=== PATIENT | female | born 1995 ===

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

== ENCOUNTER 2017-01-28 12:41 | Emergency (ER) | payer OTHER ==
[2017-01-28 12:42] VITALS: BMI 23.0
--- NOTE | 2017-01-28 13:48 | ED PDOC ---
HPI: General Adult Time Seen by Provider: 01/28/17 13:08 Chief Complaint (Nursing): Abdominal Pain History Per: Patient Additional Complaint(s): Pt. states for the past 1-2 weeks she's had pelvic pain associated with nausea some non-bloody vomiting. Pt. states she is currently "3 weeks ." LMP 11/05/2016. Pt. has not had any care yet. Denies hematuria, vaginal bleeding, dysuria, fever, diarrhea, hx of ectopic . Past Medical History Reviewed: Historical Data, Nursing Documentation, Vital Signs Vital Signs: Last Vital Signs Temp 98.2 F 01/28/17 12:57 Pulse 67 01/28/17 12:57 Resp 19 01/28/17 12:57 BP 114/72 01/28/17 12:57 Pulse Ox 97 01/28/17 13:48 - Medical History PMH: Bipolar Disorder, Depression Denies: Diabetes, Hepatitis, HIV, HTN, Chronic Kidney Disease, Seizures, Sexually Transmitted Disease - Family History Family History: States: No Known Family Hx - Home Medications Home Medications: Ambulatory Orders Medication Instructions Recorded Doxylamine/Pyridoxine HCl (B6) 1 - 2 tab PO DAILY PRN #30 01/28/17 [Lila Sung 10-10 mg Tablet] tablet. Nitrofurantoin Macrocrystals 100 mg PO BID #14 cap 01/28/17 [Macrobid] Multivit/Folic Acid/I 1 tab PO DAILY #30 tab 01/28/17 [ Plus] - Allergies Allergies/Adverse Reactions: Allergies Allergy/AdvReac Type Severity Reaction Status Date / Time No Known Allergies Allergy Verified 09/20/16 09:08 Review of Systems ROS Statement: Except As Marked, All Systems Reviewed And Found Negative Genitourinary Female: Positive for: Pelvic Pain Physical Exam - Physical Exam Appears: Positive for: Well, Non-toxic, No Acute Distress Skin: Positive for: Normal Color, Warm. Negative for: Rash Eye Exam: Positive for: EOMI, Normal appearance, PERRL Cardiovascular/Chest: Positive for: Regular Rate, Rhythm Respiratory: Positive for: CNT, Normal Breath Sounds Gastrointestinal/Abdominal: Positive for: Normal Exam, Bowel Sounds, Soft. Negative for: Tenderness Back: Positive for: Normal Inspection. Negative for: L CVA Tenderness, R CVA Tenderness Extremity: Positive for: Normal ROM Neurologic/Psych: Positive for: Alert, Oriented - Laboratory Results Result Diagrams: 01/28/17 14:10 01/28/17 14:10 Urine POC: Positive Urine dip results: Positive for: Leukocyte Esterase (trace). Negative for: Blood, Nitrate, Ketones, Glucose, Bilirubin, Protein - ECG O2 Sat by Pulse Oximetry: 97 - Progress ED Course And Treament: Labs ordered. OB TVUS ordered. OB TVUS: Single live intrauterine with a crown-rump length of 9 millimeters corresponding to 7 weeks gestational age. 2.1 centimeter right corpus luteum cyst. Left ovary not identified. heart motion is identified. There is a yolk sac. Disposition - Clinical Impression Clinical Impression: UTI (urinary tract infection) during - Patient ED Disposition Is Patient to be Admitted: No - Disposition Referrals: [facility] [Outside] Disposition: Routine/Home Disposition Time: 16:38 Condition: STABLE Additional Instructions: FOLLOW UP WITH YOUR OBGYN ON MONDAY FOR FURTHER EVALUATION Prescriptions: Doxylamine/Pyridoxine HCl (B6) [Lila Sung 10-10 mg Tablet] 1 - 2 tab PO DAILY PRN #30 tablet. PRN Reason: Nausea/Vomiting Nitrofurantoin Macrocrystals [Macrobid] 100 mg PO BID #14 cap Multivit/Folic Acid/I [ Plus] 1 tab PO DAILY #30 tab Instructions: Urinary Tract Infection in (ED) Forms: [employer] (Russian)
[2017-01-28 14:35] LABS: BASO % 0.3 % (0.0-2.0); EOS # 0.1 K/uL (0.0-0.7); EOS % 1.6 % (0.0-4.0); HEMATOCRIT 40.8 % (34.0-47.0); LYMPH # 1.7 K/uL (1.0-4.3); LYMPH % 17.8 % (20.0-40.0); MEAN CELL VOLUME 92.4 fl (81.0-99.0); MEAN CORPUSCULAR HEMOGLOBIN 31.3 pg (27.0-31.0); MEAN CORPUSCULAR HGB CONC 33.9 g/dL (33.0-37.0); MONO # 0.8 K/uL (0.0-0.8); MONO % 8.5 % (0.0-10.0); NEUT # 6.7 K/uL (1.8-7.0); NEUT % 71.8 % (50.0-75.0); NRBC % 0.1 % (0.0-0.0); RED CELL DISTRIBUTION WIDTH 12.9 % (11.5-14.5); WHITE BLOOD COUNT 9.3 K/uL (4.8-10.8)
[2017-01-28 14:42] LABS: ALB/GLOB RATIO 1.4 (1.0-2.1); ALKALINE PHOSPHATASE 45 U/L (38-126); ALT/SGPT 32 U/L (9-52); AST/SGOT 20 U/L (14-36); BILIRUBIN,TOTAL 0.2 mg/dl (0.2-1.3); BLOOD UREA NITROGEN 8 mg/dl (7-17); CALCIUM 9.1 mg/dL (8.4-10.2); CARBON DIOXIDE 25 mmol/L (22-30); CHLORIDE 105 mmol/L (98-107); GFR AFRICAN-AMERICAN > 60; GLUCOSE,RANDOM 87 mg/dL (65-105); POTASSIUM 3.9 MMOL/L (3.6-5.0); SODIUM 139 mmol/l (132-148); TOTAL PROTEIN 7.4 G/DL (6.3-8.2)
--- NOTE | 2017-01-28 16:40 | US ---
PROCEDURE: HISTORY: pelvic pain COMPARISON: TECHNIQUE: FINDINGS: Single live intrauterine with a crown-rump length of 9 millimeters corresponding to 7 weeks gestational age. 2.1 centimeter right corpus luteum cyst. Left ovary not identified. heart motion is identified. There is a yolk sac. IMPRESSION: As above.
[2017-01-28 16:57] LABS: RBC URINE 2 /hpf (0-3); URINE BACTERIA MOD (<OCC); URINE BILIRUBIN NEGATIVE (NEGATIVE); URINE BLOOD NEGATIVE (NEGATIVE); URINE COLOR YELLOW (YELLOW); URINE GLUCOSE (UA) NEG (Normal); URINE KETONE NEGATIVE (NEGATIVE); URINE LEUKOCYTE ESTERASE SMALL Leu/uL (Negative); URINE PROTEIN 30 mg/dL (NEGATIVE); URINE UROBILINOGEN 0.2-1.0 mg/dL (0.2-1.0); WBC URINE 12 /hpf (0-5)
[2017-01-28 17:12] VITALS: BP 120/76; PULSE 78; RESP 17; TEMP 97.6; O2SAT 98
== END 2017-01-28 17:12 | disposition home or self-care (01) ==
LOC: H.ER 12:41 → SUPCPDRO 12:41 → H.ER 17:12
DX: O23.41 Unspecified infection of urinary tract in pregnancy, first trimester (principal); Z86.59 Personal history of other mental and behavioral disorders; Z3A.01 Less than 8 weeks gestation of pregnancy

== ENCOUNTER 2017-03-26 18:53 | Emergency (ER) | payer MEDICAID, OTHER ==
[2017-03-26 18:54] VITALS: BMI 23.0
[2017-03-26 19:11] VITALS: BP 140/65; PULSE 83; RESP 16; TEMP 98.2; O2SAT 100
[2017-03-26] MEDS ORDERED: Lactated Ringer's 1,000 ML IV STA (19:47)
--- NOTE | 2017-03-26 19:55 | ED PDOC ---
HPI: Abdomen Chief Complaint (Provider): abdominal pain History Per: Patient History/Exam Limitations: no limitations Onset/Duration Of Symptoms: Other (2 weeks) Current Symptoms Are (Timing): Still Present Severity: Moderate Pain Scale Rating Of: 5 Location Of Pain/Discomfort: RLQ, LLQ, Periumbilical Quality Of Discomfort: Sharp Abnormal Vaginal Bleeding: No Last Menstral Period: pt unsure; currently : 3 Para: 1 <Tami De Jesus - Last Filed: 03/26/17 21:33> <Aggie Gomez - Last Filed: 03/26/17 22:55> Time Seen by Provider: 03/26/17 19:14 Chief Complaint (Nursing): Abdominal Pain Additional Complaint(s): Zamzam Lim is a 21 yo F, with no known medical hx who presented to ED today 03/26/17 with complaints of 2 weeks abdominal pain. She does not know her LMP; gets pre- care at [facility]. States she has appt tomorrow. As per pt, she is "18-19 weeks ," but she gives WANDA of 09/06/17 , which dates her at 16w5d today. She describes the pain as sharp, 5/10, and migratory between her umbilical area, RLQ and LLQ. Denies vaginal bleeding, contractions, loss of fluid. PMH: none Past OBGYN Hx: elective termination at 16 w x1. NVD in September 2016 at [facility] ( at [id number] as per pt; but pt has records of being seen in [facility] at [place] in September 2016 when she was 37+ weeks) Allergies: none Medications: vitamins Social hx: everyday smoker 5 cig/day. Prior to , smoked 1 ppd for 4-5 yrs. Denies alcohol or illicit drug use. (Tami De Jesus) Supervising Attending Note <Tami De Jesus - Last Filed: 03/26/17 21:33> - Supervising Attending Note The Documented history was done by the: Physician Guideman, Attending Physician The documented physical exam was done by the: Physician Guideman, Attending Physician - Attestation: I have personally seen and examined this patient.: Yes I have fully participated in the care of the patient.: Yes I have reviewed all pertinent clinical information: Yes <Aggie Gomez - Last Filed: 03/26/17 22:55> - Notes: Notes:: Healthy 21yo in 2nd trimester with mild abdominal pain, no apparent distress and benign abdomen. + heart No UTI. Stable for dc. (Aggie Gomez) Past Medical History - Medical History PMH: Bipolar Disorder, Depression Denies: Diabetes, Hepatitis, HIV, HTN, Chronic Kidney Disease, Seizures, Sexually Transmitted Disease - Family History Family History: States: Unknown Family Hx - Social History Alcohol: None Drugs: Denies <Tami De Jesus - Last Filed: 03/26/17 21:33> <Aggie Gomez - Last Filed: 03/26/17 22:55> Vital Signs: Last Vital Signs Temp 98.2 F 03/26/17 19:09 Pulse 83 03/26/17 19:09 Resp 16 03/26/17 19:09 BP 140/65 03/26/17 19:09 Pulse Ox 100 03/26/17 21:33 - Home Medications Home Medications: Ambulatory Orders Medication Instructions Recorded Doxylamine/Pyridoxine HCl (B6) 1 - 2 tab PO DAILY PRN #30 01/28/17 [Lila Sung 10-10 mg Tablet] tablet. Nitrofurantoin Macrocrystals 100 mg PO BID #14 cap 01/28/17 [Macrobid] Multivit/Folic Acid/I 1 tab PO DAILY #30 tab 01/28/17 [ Plus] - Allergies Allergies/Adverse Reactions: Allergies Allergy/AdvReac Type Severity Reaction Status Date / Time No Known Allergies Allergy Verified 09/20/16 09:08 Review of Systems Constitutional: Negative for: Fever, Chills ENT: Negative for: Nose Discharge, Throat Pain Cardiovascular: Negative for: Palpitations, Edema Respiratory: Negative for: Cough Gastrointestinal: Positive for: Nausea, Abdominal Pain. Negative for: Vomiting , Diarrhea, Constipation Genitourinary Female: Negative for: Dysuria, Frequency Neurological: Negative for: Weakness, Numbness <Tami De Jesus - Last Filed: 03/26/17 21:33> Physical Exam - Physical Exam Appears: Positive for: No Acute Distress Head Exam: Positive for: ATRAUMATIC, NORMAL INSPECTION Skin: Positive for: Normal Color, Warm, Dry Eye Exam: Positive for: Normal appearance. Negative for: Conjunctival injection Neck: Positive for: Painless ROM Cardiovascular/Chest: Positive for: Regular Rate, Rhythm, Chest Non Tender. Negative for: Edema, Murmur Respiratory: Positive for: Normal Breath Sounds, Rales. Negative for: Accessory Muscle Use, Wheezing, Respiratory Distress Gastrointestinal/Abdominal: Positive for: Normal Exam, Bowel Sounds, Soft, Tenderness (very mild periumbilical tenderness) Extremity: Positive for: Normal ROM. Negative for: Calf Tenderness, Deformity Neurologic/Psych: Positive for: Alert, Oriented <Tami De Jesus - Last Filed: 03/26/17 21:33> - Laboratory Results Result Diagrams: 03/26/17 20:15 03/26/17 20:15 - ECG O2 Sat by Pulse Oximetry: 100 <Tami De Jesus - Last Filed: 03/26/17 21:33> - Laboratory Results Result Diagrams: 03/26/17 20:15 03/26/17 20:15 <Aggie Gomez - Last Filed: 03/26/17 22:55> Medical Decision Making <Tami De Jesus - Last Filed: 03/26/17 21:33> <Aggie Gomez - Last Filed: 03/26/17 22:55> Medical Decision Makin:34 Bedside sono done with Dr. Gomez - fetus visualized, movements observed , cardiac activity noted. Urine dipstick: neg for nitrate, negative for leukocyte esterase Urine preg: positive 1L LR @ 1,000 ml/hr Urine tox pending CBC w/diff pending CMP pending 21:26 CBC and CMP wnl utox negative Pt to be d/c home with follow up at [facility]. Pt seen and discussed with Dr. Gomez. (Tami De Jesus) Disposition - Patient ED Disposition Is Patient to be Admitted: No Counseled Patient/Family Regarding: Smoking Cessation - Disposition Disposition Time: 21:27 <Tami De Jesus - Last Filed: 03/26/17 21:33> - Disposition Disposition: Routine/Home <Aggie Gomez - Last Filed: 03/26/17 22:55> - Clinical Impression Clinical Impression: Abdominal pain during - Disposition Referrals: [facility] [Outside] - 03/27/17 Condition: GOOD Additional Instructions: DRINK PLENTY OF HYDRATING FLUIDS AND REST FOLLOW UP SCHEDULED TOMORROW WITH MARIN GARCIA CONTINUE VITAMINS DAILY QUIT SMOKING Instructions: How to Stop Smoking (ED), Abdominal Pain in (ED), at 15 to 18 Weeks (ED) Forms: [employer] (Khmer)
[2017-03-26 20:24] LABS: BASO % 0.3 % (0.0-2.0); EOS # 0.1 K/uL (0.0-0.7); EOS % 1.4 % (0.0-4.0); LYMPH # 1.5 K/uL (1.0-4.3); LYMPH % 18.4 % (20.0-40.0); MEAN CELL VOLUME 91.4 fl (81.0-99.0); MEAN CORPUSCULAR HEMOGLOBIN 30.8 pg (27.0-31.0); MEAN CORPUSCULAR HGB CONC 33.8 g/dL (33.0-37.0); MEAN PLATELET VOLUME 9.5 fl (7.2-11.7); MONO # 0.7 K/uL (0.0-0.8); MONO % 8.7 % (0.0-10.0); NEUT # 5.9 K/uL (1.8-7.0); NEUT % 71.2 % (50.0-75.0); RBC 3.91 Mil/uL (3.80-5.20); RED CELL DISTRIBUTION WIDTH 13.3 % (11.5-14.5); WHITE BLOOD COUNT 8.4 K/uL (4.8-10.8)
[2017-03-26 20:32] LABS: ALB/GLOB RATIO 1.2 (1.0-2.1); ALBUMIN 3.7 g/dL (3.5-5.0); ALT/SGPT 27 U/L (9-52); AST/SGOT 16 U/L (14-36); BLOOD UREA NITROGEN 12 mg/dl (7-17); CALCIUM 9.1 mg/dL (8.4-10.2); GFR AFRICAN-AMERICAN > 60; GFR NON-AFRICAN AMERICAN > 60
[2017-03-26 20:35] LABS: BARBITURATES, UR NEGATIVE (NEGATIVE); BENZODIAZEPINES, UR NEGATIVE (NEGATIVE); OPIATES, UR NEGATIVE (NEGATIVE); PHENCYCLIDINE, UR NEGATIVE (NEGATIVE)
== END 2017-03-26 22:02 | disposition home or self-care (01) ==
LOC: H.ER 18:53
DX: O26.899 Other specified pregnancy related conditions, unspecified trimester (principal); F17.210 Nicotine dependence, cigarettes, uncomplicated; F31.9 Bipolar disorder, unspecified
CPT/HCPCS: 80053; 80324; 80345; 80346; 80349; 80353; 80358; 80361; 83992; 85025; 99282; J7120

== ENCOUNTER 2017-09-16 03:07 | Inpatient (IN) | payer OTHER ==
[2017-09-16 04:13] VITALS: BMI 22.3
[2017-09-16] MEDS ORDERED: Penicillin G Potassium 5 MU in Sodium Chloride 0.9% 50 ML IVPB ONE (04:14)
[2017-09-16] MEDS ORDERED: Lactated Ringer's 1,000 ML IV SCH (04:15)
[2017-09-16] MEDS: Lactated Ringer's 1,000 ML IV ONE ×2 (04:30→04:45)
[2017-09-16] MEDS ORDERED: Penicillin G 5 Million Unit Vial IVPB ONE (04:36)
[2017-09-16 05:12] LABS: BASO % 0.4 % (0.0-2.0); EOS # 0.1 K/uL (0.0-0.7); EOS % 0.7 % (0.0-4.0); HEMOGLOBIN 12.3 g/dL (12.0-16.0); LYMPH # 1.8 K/uL (1.0-4.3); LYMPH % 18.5 % (20.0-40.0); MEAN CELL VOLUME 93.7 fl (81.0-99.0); MEAN CORPUSCULAR HEMOGLOBIN 30.2 pg (27.0-31.0); MEAN CORPUSCULAR HGB CONC 32.2 g/dL (33.0-37.0); MEAN PLATELET VOLUME 10.4 fl (7.2-11.7); MONO % 10.7 % (0.0-10.0); NEUT # 6.6 K/uL (1.8-7.0); NEUT % 69.7 % (50.0-75.0); NRBC % 0.1 % (0.0-0.0); RBC 4.06 Mil/uL (3.80-5.20); RED CELL DISTRIBUTION WIDTH 14.7 % (11.5-14.5); WHITE BLOOD COUNT 9.5 K/uL (4.8-10.8)
[2017-09-16] MEDS ORDERED: Fentanyl/Bupivacaine HCl 250 ML EPI ONE (05:12)
[2017-09-16] MEDS ORDERED: Lidocaine 1% Inj (20ml) ONE (05:23)
[2017-09-16] MEDS ORDERED: Oxytocin 30 units/LR 500ML 30 U/500 ML BAG IV ONE (05:25)
[2017-09-16] MEDS ORDERED: Oxycodone/Acetaminophen 5/325 mg Tab PO PRN (06:01)
[2017-09-16] MEDS ORDERED: Benzocaine/Menthol SPRAY TOP PRN (06:01)
--- NOTE | 2017-09-16 06:29 | OBADHP ---
Datetime: 09/16/2017 06:05 IP Chief Complaint: Uterine contractions EGA AdmitDate IP: 39.5 IP Admit Plan: Admit to unit; Initiate labor protocol Datetime: 09/16/2017 05:14 IP Adm Impression Other: GBS+ Admit Comment, IP Provider: Pt is a 22 y/o female with IUP 39.5 wks presents to [facility] with irreg ular ctx since 11am. Denies LOF, VB. +FM PNC: [place], GBS +, poorly complaint, no 3rd trimester labs, remainder of labs unremarkable OBHX: 1 prior (09/2016), full term, no complications, 1 SAB PMHX: Bipolar, Depression on records but denies Meds: PNV Allergies: NKDA Social: Former smoker, quit in 2nd trimester PE: Vitals: 115/73, 76 General: Pt appears moderately uncomfortable during contractions Cardio: RRR, no murmurs Pulm: CTABL Abdomen: Gravid, NT Ext: no edema Cervix- 4-5cm, low Limited Bedside U/S: Cephalic presentation FHR 130, reactive, no decels A: IUP 39.5 weeks in active labor, GBS+ P: Admit to L_D. Monitor for progression of labor. Heidy 5 x1, Pen 2.5 q4. LR bolus 1 liter. CBC, T ype and Screen, HIV, RPR, utox. Continuous monitoring. Discussed case with Dr. Rasheed Car, PGY2 OB Hospitalist on-call. With PGY2, I saw and examined this patient. Agree with note. MAHNDO Pain management, labor and delivery discussed. Extremities - PN: Normal Abdomen - PN: Normal Back - PN: Normal Lungs - PN: Normal Heart - PN: Normal Neurologic - PN: Normal HEENT - PN: Normal General - PN: Normal IP Hx Assessment: The History has been Reviewed and is Current Vital Signs Provider: Reviewed Dilatation, Provider: 4 Genitourinary Exam: Normal IP Adm Impression: Term, intrauterine ; Active labor; Intact Membranes
[2017-09-16 06:35] VITALS: RESP 20; O2SAT 100
--- NOTE | 2017-09-16 06:42 | OBDS ---
DELIVERY PERSONNEL Delivery Doctor: Raji Iqbal DO Hospital Attendant: Nini Bell RN, Taisha RN, Huber RN Resident: Dr. Damon MATERNAL INFORMATION Delivery Anesthesia: Local Medications in Delivery: Pitocin Estimated Blood Loss (ml): 200 Placenta Cultured: No Maternal Complications: Precipitous Labor (<3hrs) RN Comments: Vaginal Cyst removed by Dr. Iqbal specimen sent to lab Provider Comments: of live female over intact perineum. Nuchal cord was checked and none noted. The anterior shoulder delivered easily and the posterior s houlder followed. The remainder of the was easily delivered and oropharynx was bulb suctioned. The infant was noted to have spontaneous cry and spontaneous movement of all four extremities. The c ord was clamped x 2 and cut. Cord blood was obtained. The placenta delivered intact spontaneously and 30 units of Pitocin was placed in the IV bag to firm the uterus. Examination of the cervix and vagin al vault revealed a 1st degree perineal laceration which was repaired with 2-0 vicrylafter lidocaine injection. During repair, pt was found to have a vaginal cyst and the specimen was sent to pathology. The patient tolerated this procedure well. All sponge and needle counts were correct. Pediatrics was notified that Penicillin was administered at this time. Dr. Iqbal was present for entire procedure. EB L 200ml SNEHA CarY2 OB Hospitalist on-call. With PGY2, I attended with PGY2 Agree with note. ENRICOO LABOR SUMMARY EDC: 09/18/2017 00:00 No. Babies in Womb: 1 Attempted: No Labor Anesthesia: Local LABOR INFORMATION Reason for Induction: Not Applicable Onset of Labor: 09/15/2017 11:00 Complete Dilatation: 09/16/2017 05:15 Oxytocin: N/A Group B Beta Strep: Positive Antibiotics # of Doses: 1 Antibiotics Time of Last Dose: 0450 Steroids Given: None Reason Steroids Not Administered: Not Applicable MEMBRANES Membranes Rupture Method: Spontaneous Rupture of Membranes: 09/16/2017 05:14 Length of Rupture (hrs): 0.15 Amniotic Fluid Color: Clear Amniotic Fluid Amount: Moderate STAGES OF LABOR Stage 1 hrs: 18 Stage 1 min: 15 Stage 2 hrs: 0 Stage 2 min: 8 Stage 3 hrs: 0 Stage 3 min: 13 Total Time in Labor hrs: 18 Total Time in Labor min: 36 VAGINAL DELIVERY Episiotomy: None Laceration Extension: First Degree Laceration Type: Perineal Laceration Repair: Yes Initial Vag Sponge Count: 5 Final Vag Sponge Count: 5 Initial Vag Sharps Count: 2 Final Vag Sharps Count: 2 Sponge Count Correct: Yes Sharps Count Correct: Yes Count Comment: Laps 5 Sharps 2 Syringe 1 BABY A INFORMATION Delivery Date/Time: 09/16/2017 05:23 Method of Delivery: Vaginal Born in Route : No : N/A Forceps: N/A Vacuum Extraction: N/A Shoulder Dystocia : No SHOULDER DYSTOCIA BABY A Delivery Date/Time: 09/16/2017 05:23 PRESENTATION/POSITION BABY A Presentation: Cephalic Cephalic Presentation: Vertex Breech Presentation: N/A PLACENTA INFORMATION BABY A Placenta Delivery Time : 09/16/2017 05:36 Placenta Method of Delivery: Spontaneous Placenta Status: Delivered SCORES BABY A Heart Rate 1 min: >100 bpm Resp Effort 1 min: Good Cry Reflex Irritability 1 min: Cough or Sneeze or Pulls Away Muscle Tone 1 min: Active Motion Color 1 min: Body [place], Extremities Blue Resuscitation Effort 1 min: Tactile Stimulation SCORE 1 MIN: 9 Heart Rate 5 min: >100 bpm Resp Effort 5 min: Good Cry Reflex Irritability 5 min: Cough or Sneeze or Pulls Away Muscle Tone 5 min: Active Motion Color 5 min: Body [place], Extremities Blue Resuscitation Effort 5 min: N/A SCORE 5 MIN: 9 INFORMATION BABY A Gestational Age at Delivery: 39.5 Gestational Status: Term Outcome : Liveborn Infant Condition : Stable Infant Sex: Female IDENTIFICATION/MEDS BABY A ID Band Number: [id number] ID Band Location: Left Leg; Left Arm WEIGHT/LENGTH BABY A Infant Birthweight (gms): 3270 Weight (lb): 7 Infant Weight (oz): 3 CORD INFORMATION BABY A No. Cord Vessels: 3 Nuchal Cord : N/A Cord Blood Taken: Yes Infant Suction: Mouth; Nose ASSESSMENT BABY A Complications: None Physical Findings at Delivery: Within Normal Limits Respirations: Appears Normal [employer] [facility]/ALS Called : No Infant Care By: Lior MARADIAGA Transferred To: Remains with Mother
[2017-09-16 09:00] LABS: BARBITURATES, UR NEGATIVE (NEGATIVE); BENZODIAZEPINES, UR NEGATIVE (NEGATIVE); OPIATES, UR NEGATIVE (NEGATIVE); PHENCYCLIDINE, UR NEGATIVE (NEGATIVE)
[2017-09-16 09:17] LABS: ALBUMIN 2.9 g/dL (3.5-5.0); ALT/SGPT 21 U/L (9-52); AST/SGOT 24 U/L (14-36); BLOOD UREA NITROGEN 9 mg/dl (7-17); CALCIUM 8.1 mg/dL (8.4-10.2); GFR AFRICAN-AMERICAN > 60; GFR NON-AFRICAN AMERICAN > 60
[2017-09-17 12:50] LABS: HEMOGLOBIN 10.9 g/dL (12.0-16.0); MEAN CELL VOLUME 91.9 fl (81.0-99.0); MEAN CORPUSCULAR HEMOGLOBIN 30.7 pg (27.0-31.0); MEAN CORPUSCULAR HGB CONC 33.4 g/dL (33.0-37.0); RBC 3.56 Mil/uL (3.80-5.20); RED CELL DISTRIBUTION WIDTH 14.7 % (11.5-14.5); WHITE BLOOD COUNT 9.2 K/uL (4.8-10.8)
--- NOTE | 2017-09-17 14:35 | OBPPN ---
Datetime: 09/17/2017 08:36 PP Pain Prov: Within normal limits PP Nausea Prov: Denies PP Flatus Prov: Yes PP BM Prov: Yes PP Heart Prov: Normal PP Lungs Prov: Normal PP Abdomen/Uterus Prov: Normal PP Lochia Prov: Normal PP Extremities Prov: Normal PP C/S Incision Prov: Normal PP Progress Prov: Normal PP Impression Prov: Normal progression PP Plan Prov: Continue present management PP Progress Note Prov: PPD1 S: 22 yo , PPD 1 s/p NVD. Pt seen and examined at bedside, does not report any acute events overnight. Reports that she has some pain at site of laceration repair- is receiving benzocaine spra y and PO pain medication. She has been ambulating without difficulty or dizziness, has been toleratin g regular diet, and has been voiding without difficulty and passing gas. She is breast and bottle fee ding baby. Denies vaginal bleeding; lochia less than menses in volume. Denies fever/chills, chest husam n, dyspnea, GI upset, calf/leg pain. PE: Gen: awake, alert, NAD, sitting in bed and holding Resp: clear to auscultation bilaterally, normal effort CV: RRR ABD: soft, appropriate tenderness to palpation, nondistended, uterus firm at umbilicus, +BS EXT: no edema, negative Joe's sign, calves nontender Neuro/Psych: no grossly focal deficit, preserved affect and mood A: 22 yo s/p NVD, doing well on PPD 1. Continue pain control, reg diet, encourage ambulation and . [id number] Attending Note: Pt was seen and examined with the resident and I agree with the above. Datetime: 09/16/2017 13:36 Vital Signs Provider PP: Reviewed; Within Normal Limits
--- NOTE | 2017-09-18 08:13 | OBPPN ---
Datetime: 09/18/2017 07:13 PP Pain Prov: Within normal limits PP Nausea Prov: Denies PP Flatus Prov: Yes PP BM Prov: Yes PP Breasts Prov: Normal PP Heart Prov: Normal PP Lungs Prov: Normal PP Abdomen/Uterus Prov: Normal PP Lochia Prov: Normal PP CVA Tenderness Prov: Normal PP Extremities Prov: Normal PP C/S Incision Prov: Not Applicable PP Progress Prov: Normal PP Impression Prov: Normal progression PP Plan Prov: Continue present management; Discharge PP Progress Note Prov: S: 22 yo on 09/16/17 PPD 2. Seen and examined at bedside this am. Patient states mild pelvic cramping controlled with ibuprofen denies any significant overnight even ts. OOB/Ambulation well without dizziness. Breast and bottle feeding without difficulty. Tolerating P O diet well. Lochia is similar to menses . Voiding freely with no blood noted, +Bowel movement, passi ng gas per rectum. Denies fever/chills, diarrhea, nausea/vomiting, CP/SOB , Lightheadedness, calf husam n. O: BP:121/69, HR:67, RR20, T:98.9 CBC: 10.9/32.7 blood type: O+ Rubella: Immune TDAP:Ordered will be given this AM PHYSICAL EXAM: GEN: AAOx3, Resting comfortably in bed, NAD HEENT: NCAT, White sclera, pink conjunctiva, oral mucosa moist. LUNGS: CTA B/L, no wheezing, rhonchi, or rales, B/L chest rise CVS: RRR, S1, S2, No murmurs, rubs, gallops ABD: ND, +BS, firm fundus @ umbilical level. Soft, appropriate TTP EXT: No edema, negative Joe's sign, calves nontender NEURO/Psych: no gross focal deficit, preserved affect and mood. A/P 22yo PPD2 on 09/16/17 @ 5:23am. Pt afebrile, tolerating pain with medication, tolerati ng oral intake, adequate urine output. Encouraged and ambulation Continue vitamins 1 QD Ibuprofen 600 mg 1 tab q/ 6 hrs po if mild pain. Discussed post op contraception- Wants 10 yr IUD D/C today pending social work consult Sarah Morgan M.D. PGY-1 Reviewed and discussed with Attending OB Hospitalist Addendum: Pt seen and examined by me. Agree w/ above. PPD 2 s/p , doing well, breast and bottle feeding. Discharge home today. (ES) IP PP Procedures: None Vital Signs Provider PP: Reviewed; Within Normal Limits
--- NOTE | 2017-09-18 08:47 | OBDCSUM ---
Datetime: 09/18/2017 07:17 Discharged to, Provider: Home Follow up at, Provider: Dr. Coe Instr Activity: May be up to bathroom; May be up for meals; May Shower Disch Instr Diet: Regular Discharge Instructions, Provider: Routine instructions given Discharge Diagnosis, Provider: Term Delivered Discharge Time: 09/18/2017 10:00 Follow up in weeks, Provider: 4-6 weeks Disch Referrals: None Contraception discussed, Prov: Yes Disch Activity Restrictions: No exercising; No lifting; Minimize stair-climbing; Nothing in vagina - [place], tampons, douche Discharge Comment, Provider: Discharge Instructions: 1. Continue 2. vitamin 1 tab po daily 3. Ibuprofen 600mg 1 tab as needed for mild pain 4. ER precautions: If excessive bleeding or fever without relief from medication, go to ED 5. Avoid stairs, exercising, heavy lifting 6. Nothing in vagina for 4-6weeks 7. F/U at [facility] in 4-6 weeks for post- visit Contraception after Delivery: IUD
[2017-09-18] MEDS ORDERED: Tdap Vaccine 0.5 ml Vial (10-64 yrs) IM ONE (09:00)
[2017-09-18 18:57] VITALS: BP 110/60; PULSE 65; TEMP 98.7
== END 2017-09-18 14:22 | disposition home or self-care (01) | DRG 373 ==
LOC: H.EROB2 03:07 → H.L&D 04:14 → H.OB/GYN 10:15
PROVIDERS: ADMIT Obstetrics & Gynecology; ATTEND Obstetrics & Gynecology
PROC: 10E0XZZ Delivery of Products of Conception, External Approach (ICD-10-PCS; principal; 2017-09-16)
PROC: 0HQ9XZZ Repair Perineum Skin, External Approach (ICD-10-PCS; 2017-09-16)
PROC: 4A1HXCZ Monitoring of Products of Conception, Cardiac Rate, External Approach (ICD-10-PCS; 2017-09-16)
PROC: 3E0234Z Introduction of Serum, Toxoid and Vaccine into Muscle, Percutaneous Approach (ICD-10-PCS; 2017-09-18)
DX: O34.83 Maternal care for other abnormalities of pelvic organs, third trimester (principal); N89.8 Other specified noninflammatory disorders of vagina; O62.3 Precipitate labor; O70.0 First degree perineal laceration during delivery; O99.824 Streptococcus B carrier state complicating childbirth; Z37.0 Single live birth; Z3A.39 39 weeks gestation of pregnancy; Z23 Encounter for immunization; Z87.891 Personal history of nicotine dependence

== ENCOUNTER 2017-10-19 23:29 | Emergency (ER) | payer OTHER ==
[2017-10-19 23:30] VITALS: BMI 22.3
[2017-10-19 23:41] VITALS: RESP 16; O2SAT 99
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
[2017-10-20 03:12] VITALS: BP 112/72; PULSE 84; TEMP 98.4
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
== END 2017-10-20 02:53 | disposition home or self-care (01) ==
LOC: H.ER 23:29
DX: S20.219A Contusion of unspecified front wall of thorax, initial encounter (principal); Y04.0XXA Assault by unarmed brawl or fight, initial encounter; Y92.89 Other specified places as the place of occurrence of the external cause; F41.9 Anxiety disorder, unspecified

== ENCOUNTER 2018-03-18 16:14 | Emergency (ER) | payer SELFPAY ==
[2018-03-18 16:14] VITALS: BMI 22.3
[2018-03-18 16:19] VITALS: BP 125/68; PULSE 78; RESP 18; TEMP 97.9; O2SAT 99
--- NOTE | 2018-03-18 18:57 | ED PDOC ---
Lower Extremity Pain/Injury Time Seen by Provider: 03/18/18 16:40 Chief Complaint (Nursing): Lower Extremity Problem/Injury Chief Complaint (Provider): Lower Extremity Problem/Injury History Per: Patient History/Exam Limitations: no limitations Onset/Duration Of Symptoms: Days Current Symptoms Are (Timing): Still Present Additional Complaint(s): 22 y/o female with a PMHx of asthma presents to the ED for evaluation of a right ankle injury. Patient states she jumped down two steps when her knees buckled causing her to fall onto her right ankle. Patient reports of feeling immediate pain and swelling. Patient additionally reports of difficulty bearing weight. Patient states pain is associated with intermittent tingling of her right foot. Otherwise, patient denies taking any pain medications prior to arrival, head trauma, loss of consciousness and pain in the knees or toes. PMD: no provider Past Medical History Reviewed: Historical Data, Nursing Documentation, Vital Signs Vital Signs: Last Vital Signs Temp 97.9 F 03/18/18 16:17 Pulse 78 03/18/18 16:17 Resp 18 03/18/18 16:17 BP 125/68 03/18/18 16:17 Pulse Ox 99 03/18/18 16:17 - Medical History PMH: Asthma, Bipolar Disorder Denies: Depression, Diabetes, Hepatitis, HIV, HTN, Chronic Kidney Disease, Seizures, Sexually Transmitted Disease - Surgical History Surgical History: No Surg Hx - Family History Family History: States: Unknown Family Hx - Home Medications Home Medications: Ambulatory Orders Medication Instructions Recorded RX: Multivit/Folic Acid/I 1 tab PO DAILY #30 tab 01/28/17 [] RX: Ibuprofen [Motrin Tab] 600 mg PO Q6 PRN #30 tab 09/16/17 RX: Naproxen 500 mg PO BID PRN #20 tab 10/20/17 Acetaminophen [Tylenol 325mg tab] 650 mg PO Q6 PRN 7 Days tab 03/18/18 RX: Ibuprofen [Motrin Tab] 600 mg PO Q6 PRN 7 Days tab 03/18/18 - Allergies Allergies/Adverse Reactions: Allergies Allergy/AdvReac Type Severity Reaction Status Date / Time No Known Allergies Allergy Verified 10/19/17 23:37 Review of Systems ROS Statement: Except As Marked, All Systems Reviewed And Found Negative Musculoskeletal: Positive for: Leg Pain (right ankle injury) Physical Exam - Reviewed Nursing Documentation Reviewed: Yes Vital Signs Reviewed: Yes - Physical Exam Appears: Positive for: No Acute Distress Pulses-Dorsalis Pedis (L): 2+ Pulses-Dorsalis Pedis (R): 2+ Extremity: Positive for: Tenderness (to palpation of the lateral malleolous. ), Capillary Refill (< 2 seconds), Swelling (to the lateral aspect of the right ankle). Negative for: Normal ROM (Decreased ROM with inversion and eversion as well as flexion and exension. Normal ROM including flexion and extension of the toes and knees) - ECG O2 Sat by Pulse Oximetry: 99 (RA) Pulse Ox Interpretation: Normal Medical Decision Making Medical Decision Making: Time: 1723 Plan: -- ED Urine -- Motrin 600 mg PO -- Ankle Right XR Time 1900 -- XR reviewed by APOLINAR demonstrates no fracture or dislocation appreciated. -- AirCast placed and crutches provided. -- Patient is stable for discharge home. Patient instructed to follow up with orthopedic clinic if pain persists. Scribe Attestation: Documented by Deborah Rosario, acting as a scribe Moises Bryant PA-C. Provider Scribe Attestation: All medical record entries made by the Scribe were at my direction and personally dictated by me. I have reviewed the chart and agree that the record accurately reflects my personal performance of the history, physical exam, medical decision making, and the department course for this patient. I have also personally directed, reviewed, and agree with the discharge instructions and disposition. Disposition - Clinical Impression Clinical Impression: Ankle sprain - Patient ED Disposition Is Patient to be Admitted: No Counseled Patient/Family Regarding: Studies Performed, Diagnosis, Need For Followup - Disposition Referrals: [facility] [Outside] [facility] [Outside] Disposition: Routine/Home Disposition Time: 19:01 Condition: STABLE Additional Instructions: Use Ibuprofen and Tylenol for pain. Keep leg elevated and ice it today. Use air cast and crutches for comfort until pain improves. Return to ER if pain is worsening and you are unable to bear weight after a couple of days. Prescriptions: Acetaminophen [Tylenol 325mg tab] 650 mg PO Q6 PRN 7 Days tab PRN Reason: Pain, Moderate (4-7) RX: Ibuprofen [Motrin Tab] 600 mg PO Q6 PRN 7 Days tab PRN Reason: Pain, Moderate (4-7) Instructions: Ankle Sprain (DC) Forms: [facility] [employer] (Serbian) Print Language: WOLOF
--- NOTE | 2018-03-19 12:34 | RAD ---
Date of service: 03/18/2018 PROCEDURE: Right Ankle Radiographs. HISTORY: fall onto Right ankle, + swelling laterally COMPARISON: None available. FINDINGS: BONES: Bone alignment and mineralization are normal. There is no acute displaced fracture or bone destruction. JOINTS: Normal. Ankle mortise maintained. Talar dome intact SOFT TISSUES: Moderate lateral soft tissue swelling. OTHER FINDINGS: Small joint effusion. IMPRESSION: No acute displaced fracture or dislocation. Moderate lateral soft tissue swelling. Small joint effusion.
== END 2018-03-18 19:25 | disposition home or self-care (01) ==
LOC: H.ER 16:14
DX: S93.401A Sprain of unspecified ligament of right ankle, initial encounter (principal); W10.9XXA Fall (on) (from) unspecified stairs and steps, initial encounter; Z86.59 Personal history of other mental and behavioral disorders; J45.909 Unspecified asthma, uncomplicated

== ENCOUNTER 2018-04-02 17:17 | Emergency (ER) | payer MEDICAID ==
[2018-04-02 17:17] VITALS: BMI 22.3
[2018-04-02 17:32] VITALS: BP 122/79; RESP 18; TEMP 97.6; O2SAT 99
[2018-04-02] MEDS ORDERED: Sodium Chloride 0.9% 1,000 ML IV STA (17:50)
--- NOTE | 2018-04-02 18:14 | ED PDOC ---
HPI: CCC, URI, Sore Throat Time Seen by Provider: 04/02/18 17:37 Chief Complaint (Nursing): Cough, Cold, Congestion Chief Complaint (Provider): Cough, chest pain History Per: Patient History/Exam Limitations: no limitations Have you had recent travel within the past 21 days to any of the following countries: [place], [place], [place] or [place]?: No Onset/Duration Of Symptoms: Persistent Current Symptoms Are (Timing): Still Present Associated Symptoms: Cough, Sputum (black). denies: Fever Additional Complaint(s): 22yo female, comes to ER reporting for the past 6 months, she has had a persistent cough and states she has black sputum every morning. Patient states she is a smoker, and smokes about 12 cigarettes per day. She also reports intermittent shortness of breath, and mid-sternal chest pain. Otherwise, she denies any history of DVT or PE. Patient also denies any hormonal therapy, including OCP, and also denies any prolonged limb immobilization. No additional complaints. Past Medical History Reviewed: Historical Data, Nursing Documentation, Vital Signs Vital Signs: Last Vital Signs Temp 97.6 F 04/02/18 17:27 Pulse 122 H 04/02/18 17:27 Resp 18 04/02/18 17:27 BP 122/79 04/02/18 17:27 Pulse Ox 99 04/02/18 17:27 - Medical History PMH: Asthma, Bipolar Disorder Denies: Depression, Diabetes, Deep Vein Thrombosis, Hepatitis, HIV, HTN, Pulm onary Embolism, Chronic Kidney Disease, Seizures, Sexually Transmitted Disease - Surgical History Surgical History: No Surg Hx - Family History Family History: States: No Known Family Hx Other Family History: no history of clotting disorders - Social History Current smoker - smoking cessation education provided: Yes SMOKER/PACKS PER DAY:: 12 (cigarettes) Alcohol: None Drugs: Denies - Home Medications Home Medications: Ambulatory Orders Medication Instructions Recorded RX: Multivit/Folic Acid/I 1 tab PO DAILY #30 tab 01/28/17 [] RX: Ibuprofen [Motrin Tab] 600 mg PO Q6 PRN #30 tab 09/16/17 RX: Naproxen 500 mg PO BID PRN #20 tab 10/20/17 Acetaminophen [Tylenol 325mg tab] 650 mg PO Q6 PRN 7 Days tab 03/18/18 RX: Ibuprofen [Motrin Tab] 600 mg PO Q6 PRN 7 Days tab 03/18/18 Albuterol HFA [Ventolin HFA 90 2 puff IH [id number] PRN #120 puff 04/02/18 mcg/actuation (8 g)] - Allergies Allergies/Adverse Reactions: Allergies Allergy/AdvReac Type Severity Reaction Status Date / Time No Known Allergies Allergy Verified 04/02/18 17:27 Review of Systems ROS Statement: Except As Marked, All Systems Reviewed And Found Negative Constitutional: Negative for: Fever, Chills Cardiovascular: Positive for: Chest Pain Respiratory: Positive for: Cough, Sputum Gastrointestinal: Negative for: Vomiting, Abdominal Pain Physical Exam - Reviewed Nursing Documentation Reviewed: Yes Vital Signs Reviewed: Yes - Physical Exam Appears: Positive for: Non-toxic, No Acute Distress Head Exam: Positive for: ATRAUMATIC, NORMAL INSPECTION, NORMOCEPHALIC Skin: Positive for: Normal Color Eye Exam: Positive for: Normal appearance ENT: Negative for: Pharyngeal Erythema, Tonsillar Exudate, Tonsillar Swelling Neck: Positive for: Normal, Supple Cardiovascular/Chest: Positive for: Tachycardia (regular rate) Respiratory: Positive for: Normal Breath Sounds. Negative for: Rales, Rhonchi, Wheezing Gastrointestinal/Abdominal: Positive for: Normal Exam, Soft Back: Positive for: Normal Inspection Extremity: Positive for: Normal ROM. Negative for: Calf Tenderness Neurologic/Psych: Positive for: Alert, Oriented. Negative for: Motor/Sensory Deficits - Laboratory Results Result Diagrams: 04/02/18 19:58 04/02/18 19:58 - ECG ECG: Positive for: Interpreted By Me, Viewed By Ut ECG Rhythm: Positive for: Normal QRS, Normal ST Segment, Sinus Rhythm Rate: 90 O2 Sat by Pulse Oximetry: 99 (RA) Pulse Ox Interpretation: Normal - Radiology X-Ray: Interpreted by Me (CXR) X-Ray Interpretation: No Acute Disease - Progress Re-evaluation Time: 20:25 (Dangers of smoking discussed in detail. Smoking cessation encouraged. Advised to f/u with [facility] for further evaluation but is to return to ED immediately if symptoms worsen. Offers no complaints at this time. ) Condition: Re-examined, Improved Medical Decision Making Medical Decision Making: Impression: 22yo female with persistent cough Plan: -- Labs -- EKG -- Chest x-ray -- IV Fluids -- Upreg 1921 Chest x-ray reviewed, and no active disease Scribe Attestation: Documented by Meredith Negrete, acting as a scribe for SEAN Joel. Provider Scribe Attestation: All medical record entries made by the Scribe were at my direction and personally dictated by me. I have reviewed the chart and agree that the record accurately reflects my personal performance of the history, physical exam, medical decision making, and the department course for this patient. I have also personally directed, reviewed, and agree with the discharge instructions and disposition. Disposition - Clinical Impression Clinical Impression: Cough - Patient ED Disposition Is Patient to be Admitted: No - Disposition Referrals: [facility] [Outside] Disposition: Routine/Home Disposition Time: 20:31 Condition: STABLE Additional Instructions: STOP SMOKING FOLLOW UP WITH [facility] FOR FURTHER EVALUATION RETURN TO ED IMMEDIATELY IF SYMPTOMS WORSEN RAFIQ CARRANZA, thank you for letting us take care of you today. Your prov ider was Jessica Rice MD and you were treated for COUGH. The emergency medical care you received today was directed at your acute symptoms. If you were prescribed any medication, please fill it and take as directed. It may take several days for your symptoms to resolve. Return to the Emergency Department if your symptoms worsen, do not improve, or if you have any other problems. Please contact your doctor or call one of the physicians/clinics you have been referred to that are listed on the Patient Visit Information form that is included in your discharge packet. Bring any paperwork you were given at discharge with you along with any medications you are taking to your follow up visit. Our treatment cannot replace ongoing medical care by a primary care provider outside of the emergency department. Thank you for allowing the [facility] team to be part of your care today. If you had an X-Ray or CT scan: A Radiologist will review the ED reading if any change in treatment is needed we will contact you. If you had a blood, urine, or wound culture: It will take several days for the results, if any change in treatment is needed we will contact you. If you had an STI test: It will take 48 hours for the results. Please call after 1 week if you have not heard back. Prescriptions: Albuterol HFA [Ventolin HFA 90 mcg/actuation (8 g)] 2 puff IH [id number] PRN #120 puff PRN Reason: Wheezing Instructions: Smoking: Not Just Harmful to Your Lungs and Heart, Quitting Smoking for Teens and Young Adults, Cough, Adult (DC) Forms: [employer] (Slovak)
[2018-04-02 20:04] LABS: BASO % 0.2 % (0.0-2.0); EOS # 0.1 K/uL (0.0-0.7); EOS % 0.8 % (0.0-4.0); HEMOGLOBIN 15.2 g/dL (12.0-16.0); LYMPH # 1.9 K/uL (1.0-4.3); LYMPH % 18.8 % (20.0-40.0); MEAN CELL VOLUME 91.7 fl (81.0-99.0); MEAN CORPUSCULAR HEMOGLOBIN 29.5 pg (27.0-31.0); MEAN CORPUSCULAR HGB CONC 32.2 g/dL (33.0-37.0); MONO % 10.2 % (0.0-10.0); NEUT # 7.1 K/uL (1.8-7.0); RBC 5.13 Mil/uL (3.80-5.20); RED CELL DISTRIBUTION WIDTH 15.1 % (11.5-14.5); WHITE BLOOD COUNT 10.1 K/uL (4.8-10.8)
[2018-04-02 20:11] LABS: ALB/GLOB RATIO 1.2 (1.0-2.1); ALBUMIN 4.5 g/dL (3.5-5.0); ALT/SGPT 22 U/L (9-52); AST/SGOT 18 U/L (14-36); BLOOD UREA NITROGEN 12 mg/dl (7-17); CALCIUM 9.4 mg/dL (8.4-10.2); GFR NON-AFRICAN AMERICAN > 60
[2018-04-02 20:33] VITALS: PULSE 90
--- NOTE | 2018-04-03 09:43 | RAD ---
Date of service: 04/02/2018 HISTORY: cough COMPARISON: Left ribs with chest 10/20/2017. TECHNIQUE: Chest PA and lateral FINDINGS: LUNGS: No active pulmonary disease. PLEURA: No significant pleural effusion identified. No pneumothorax apparent. CARDIOVASCULAR: No aortic atherosclerotic calcification present. Normal cardiac size. No pulmonary vascular congestion. OSSEOUS STRUCTURES: No significant abnormalities. VISUALIZED UPPER ABDOMEN: Normal. OTHER FINDINGS: None. IMPRESSION: No interval acute cardiopulmonary disease appreciated.
--- NOTE | 2018-04-03 12:17 | CARD ---
APPROVED REPORT Date of service: 04/02/2018 EKG Measurement Heart [id number] <Conclusion> Normal sinus rhythm with sinus arrhythmia Normal ECG
== END 2018-04-02 21:34 | disposition home or self-care (01) ==
LOC: H.ER 17:17
DX: R05 Cough (principal); Z86.59 Personal history of other mental and behavioral disorders; F17.210 Nicotine dependence, cigarettes, uncomplicated
CPT/HCPCS: 71046; 80053; 81025; 84484; 85025; 85378; 93005; 99283; J7030

== ENCOUNTER 2018-06-03 14:59 | Emergency (ER) | payer MEDICAID ==
[2018-06-03 15:00] VITALS: BMI 22.3
[2018-06-03 15:14] VITALS: BP 122/82; PULSE 87; RESP 18; TEMP 98.2; O2SAT 100
--- NOTE | 2018-06-03 15:31 | ED PDOC ---
HPI: Female Pain Time Seen by Provider: 06/03/18 15:26 Chief Complaint (Nursing): Female Genitourinary Chief Complaint (Provider): Possible History Per: Patient History/Exam Limitations: other (poor historian) Onset/Duration Of Symptoms: Unknown Current Symptoms Are (Timing): Still Present Additional Complaint(s): 23 year old female presents to the ED stating that she is and wants and US to find out how far along she is. Patient says she is concerned for her baby because she has been smoking "gomez cigarettes" lately, but then later states that she does not want to have the baby. Denies abdominal pain, vomiting, nausea, and vaginal bleeding / discharge, cramping, tenderness. Of note, patient is avoiding eye contact with provider during entirety of exam LNMP: not sure PMD: none OBGYN: clinic Past Medical History Reviewed: Historical Data, Nursing Documentation, Vital Signs Vital Signs: Last Vital Signs Temp 98.2 F 06/03/18 15:14 Pulse 87 06/03/18 15:14 Resp 18 06/03/18 15:14 BP 122/82 06/03/18 15:14 Pulse Ox 100 06/03/18 15:14 - Medical History PMH: Asthma, Bipolar Disorder Denies: Depression, Diabetes, Deep Vein Thrombosis, Hepatitis, HIV, HTN, Pulmonary Embolism, Chronic Kidney Disease, Seizures, Sexually Transmitted Disease - Surgical History Surgical History: No Surg Hx - Family History Family History: States: Unknown Family Hx - Social History Current smoker - smoking cessation education provided: Yes Alcohol: None Drugs: Denies - Home Medications Home Medications: Ambulatory Orders Medication Instructions Recorded Multivit/Folic Acid/I 1 tab PO DAILY #30 tab 01/28/17 [] Ibuprofen [Motrin Tab] 600 mg PO Q6 PRN #30 tab 09/16/17 Naproxen 500 mg PO BID PRN #20 tab 10/20/17 Acetaminophen [Tylenol 325mg tab] 650 mg PO Q6 PRN 7 Days tab 03/18/18 Ibuprofen [Motrin Tab] 600 mg PO Q6 PRN 7 Days tab 03/18/18 Albuterol HFA [Ventolin HFA 90 2 puff IH [id number] PRN #120 puff 04/02/18 mcg/actuation (8 g)] Comb No.42/Folic Acid 1 ctb PO DAILY #90 ctb 06/03/18 [Prena1 Chew] - Allergies Allergies/Adverse Reactions: Allergies Allergy/AdvReac Type Severity Reaction Status Date / Time No Known Allergies Allergy Verified 04/02/18 17:27 Review of Systems ROS Statement: Except As Marked, All Systems Reviewed And Found Negative Gastrointestinal: Negative for: Nausea, Vomiting, Abdominal Pain Genitourinary Female: Negative for: Dysuria, Frequency, Incontinence, Vaginal Discharge, Vaginal Bleeding, Pelvic Pain Physical Exam - Reviewed Nursing Documentation Reviewed: Yes Vital Signs Reviewed: Yes - Physical Exam Appears: Positive for: Well, Non-toxic, No Acute Distress. Negative for: In Acute Distress Head Exam: Positive for: ATRAUMATIC, NORMOCEPHALIC Skin: Positive for: Normal Color. Negative for: Rash Eye Exam: Positive for: Normal appearance Neck: Positive for: Normal, Painless ROM Cardiovascular/Chest: Positive for: Regular Rate, Rhythm Respiratory: Positive for: Normal Breath Sounds. Negative for: Respiratory Distress Gastrointestinal/Abdominal: Positive for: Normal Exam, Soft. Negative for: Tenderness Neurological/Psych: Positive for: Awake, Mood/Affect (agitated), Other (patient avoiding eye contact during exam) - ECG O2 Sat by Pulse Oximetry: 100 (RA) Pulse Ox Interpretation: Normal Medical Decision Making Medical Decision Making: Time: 152 Initial Impression: possible Initial Plan: --Patient was offered Beta-HCG blood test and a u-preg to confirm and see how far along she was. She declines this offer, demanding instead just an US without confirmation that she is even . Patient requesting her discharge papers and states she wants to leave because she does not want to wait. Strongly advised her to [facility] or with her OB for further evaluation of her . Indicated that a rx for vitamins. 1531 Patient refusing discharge papers and prescription for vitamins. Scribe Attestation: Documented by Natalya Cox, acting as a scribe for Singh Tapia PA-C. Provider Scribe Attestation: All medical record entries made by the Scribe were at my direction and personally dictated by me. I have reviewed the chart and agree that the record accurately reflects my personal performance of the history, physical exam, medical decision making, and the department course for this patient. I have also personally directed, reviewed, and agree with the discharge instructions and disposition. Disposition - Clinical Impression Clinical Impression: Female genitourinary symptoms - Patient ED Disposition Is Patient to be Admitted: No - Disposition Referrals: [facility] [Outside] [facility] [Outside] [facility] [Outside] [facility] [Outside] Disposition: Routine/Home Disposition Time: 15:35 Condition: STABLE Prescriptions: Comb No.42/Folic Acid [Prena1 Chew] 1 ctb PO DAILY #90 ctb Instructions: Tests, Medications and , Alcohol and Forms: Keelvar (Mongolian)
== END 2018-06-03 15:40 | disposition home or self-care (01) ==
LOC: H.ER 14:59
DX: Z33.1 Pregnant state, incidental (principal); F17.210 Nicotine dependence, cigarettes, uncomplicated; Z86.59 Personal history of other mental and behavioral disorders; J45.909 Unspecified asthma, uncomplicated